=== PATIENT | male | born 1950 | race Caucasian/White ===

== ENCOUNTER 2019-05-19 06:42 | Day surgery (SDC) | payer MEDICARE, SELFPAY ==
[2019-05-19] VITALS (8 sets, daily range): BP systolic 101–118; BP diastolic 46–71; PULSE 68–77; RESP 7–20; TEMP 36.2–36.6; O2SAT 94–99; BMI 22.3
[2019-05-19] MEDS: LACTATED RINGERS 1,000 ML 42 ML IV ×2 (07:37→09:18)
--- NOTE | 2019-05-19 07:47 | PM.PREOP ---
Pre-operative Note Interval Note History & Physical reviewed/Exam performed by Physician: Yes Changes to H&P: No H&P completed within 30 days and has changed as indicated here:: History and physical examination on file.
[2019-05-19] MEDS: VANCOMYCIN 1,000 MG/200 ML PIGGYBACK 200 MG IV (07:51)
[2019-05-19] MEDS: GENTAMICIN 360 MG in SODIUM CHLORIDE 0.9% 100 ML 109 ML IV (08:12)
--- NOTE | 2019-05-19 08:46 | SUR.OPER ---
Supine on padded OR bed, head on pillow, arms secured on padded arm boards at <90 degrees abduction, legs uncrossed, safety belt at thigh, tape over blanket over lower legs.
[2019-05-19] MEDS: BUPIVACAINE 0.5% W/ EPI (PF) 30 ML VIAL INJ (09:01)
[2019-05-19] MEDS: BUPIVACAINE LIPOSOME 266 MG/20 ML VIAL INJ (09:02)
[2019-05-19] MEDS: VANCOMYCIN 1,000 MG VIAL 1000 MG TOP (09:04)
[2019-05-19] MEDS: SODIUM CHLORIDE 0.9% 1,000 ML, GENTAMICIN 80 MG IRR (09:49)
--- NOTE | 2019-05-19 09:59 | SUR.OPER ---
ZIO XT HEART MONITOR REMOVED BY ANESTHESIA AT [id number].
--- NOTE | 2019-05-19 11:32 | P.OP_ITS ---
Operative Date/Time/Diagnoses Date of procedure: 05/19/19 Time of procedure: 11:32 Post-op diagnosis: same Procedure & Clinicians Procedure: Implantation inflatable penile prosthesis Same procedure as scheduled: Yes Indications: Erectile dysfunction. 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 Closure Type: primary (None) Specimen(s): none sent Prosthetic devices, grafts, tissues, transplants, or devices: LGI X 700 inflatable penile prosthesis. 100 cc capacity flat reservoir positioned in the right space of Retzius. A 16 cm total length left (6 cm proximal length and 10 cm distal length). Seventeen cm total right (7 cm proximal length and 10 cm distal length). Applied: catheter (16F Montserratian Hernandez catheter.) Estimated Blood Loss (mL): 20 Blood products transfused: none Tourniquet time (min): 0 Procedure in detail: The patient was positioned in supine is was administered general anesthesia. The abdomen genitalia and groin were then prepped and draped in sterile fashion. A 16 [place]err[place]ian Hernandez catheter was then placed in the lower urinary tract and the bladder contents drained. A solution of 0.5% Marcaine with epinephrine was then used to infiltrate the skin and subcutaneous tissue horizontally at the penoscrotal junction and an area just above the right pubic symphysis. A transverse incision was made at the penoscrotal junction and cautery and blunt dissection was that were then utilized to divide the subcutaneous dartos fascia down to the level of the corpus spongiosum of the urethra and the corpus cavernosum of both the right and left side. Utilizing a [place] retractor appropriate access was then provided 2.5 cm corporotomy was were then made bilaterally and the ventral surface of each corporal cavernosum the blunt-tipped Metzenbaum scissors were then utilized to create a channel within the corporal bodies proximally and distally bilaterally next the Hegar dilators were utilized to expand the intra corporal space to size 13 proximally and size 12 distally on both sides next a small transverse incision was made over the right pubic symphysis sharply and the subcutaneous fat and Rudy's fascia were divided using blunt and cautery technique the insertion of the rectus fascia over the right pubic symphysis was then perforated bluntly with the tips of a blunt tip Metzenbaum and then blunt dissection was then conducted to create a space behind the pubis 2 0 Vicryl suture were then placed in the rectus fascia for anticipated that closure later in the case. Next a 2nd with subcutaneous dartos pouch was created in the midline in the inferior scrotum. The prosthesis was then prepared with the lengths in volumes as described above under findings. The prosthetic cylinders were then positioned into each of the corporal bodies in the usual fashion proximally and distally the pump was then positioned in the dartos pouch and a pursestring suture of 2 Vicryl was then utilized to secure it inferiorly in the midline scrotum the connecting tubing was then tracked through the right inguinal and upper scrotal region into the small subcutaneous space of the writing suprapubic incision at this point the reservoir and pump tubing were trimmed to appropriate length and more than 6 successfully connected using a straight barrel connector the reservoir was filled with 100 cc of sterile saline prior to this maneuver. The cylinder tubing sleeves were then removed and the corporotomies were closed using 2 0 Vicryl suture the device was then cycled several times with excellent resultant function and appearance of the erect phallus. The device was left approximately 3/4 full and the Hernandez catheter was connected to gravity drainage the subcutaneous Rudy's fascia of the right suprapubic incision was closed with running 2 0 Vicryl and the skin was reapproximated with a running subcuticular 4 Monocryl small Telfa pad was then applied to the incision line and a small op site was then applied to the skin surface. The penoscrotal incision was then closed in multiple layers using 2 0 Vicryl in the subcutaneous and dartos fascial layers the skin was then reapproximated using a running subcuticular 4 0 Monocryl antibiotic ointment was then applied to the incision line Kerlix are and sterile gauze were applied to the scrotal incision and as a backing behind the penis now roll of Kerlix was used to apply a mummy like dressing to the entire penis scrotal structures of the genitalia the catheter was secured to the lower abdomen and the catheter was placed to gravity drainage. Patient was then awakened transferred to a gurney and transferred to recovery in stable condition. Complications: none Post-operative Condition: stable Disposition: PACU Plan for aftercare: Discharge home.
[2019-05-19] MEDS: ACETAMINOPHEN IV 1,000 MG/100 ML VIAL 400 MG IV (11:34)
--- NOTE | 2019-05-19 14:25 | SUR.PHASEII ---
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 Leg bag teaching completed with both, both voiced an understanding. Pt left when ready. Denied pain, dressing to penis and tegaderm c/d/i. Urine remained clear yellow and draining well.
== END 2019-05-19 12:55 | disposition home or self-care (01) ==
PROVIDERS: Visit Provider Specialist
PROC: (CPT 54405; principal; 2019-05-19 07:45)
DX: N52.9 Male erectile dysfunction, unspecified (principal); N48.6 Induration penis plastica; R33.9 Retention of urine, unspecified; N30.40 Irradiation cystitis without hematuria
CPT/HCPCS: 54405; C9290; J0131; J2250; J3010